=== PATIENT | female | born 1955 | race Caucasian/White ===

== ENCOUNTER 2023-12-06 17:06 | Inpatient (IN) | payer MEDICARE ==
[~2023-12-06] VITALS: Ht 172.7 cm; Wt 71.2 kg
[2023-12-06 17:33] LABS: BASOPHILS % (AUTO) 0.3 % (0.0-2.0); HEMATOCRIT 29.2 % (31.2-41.9); HEMOGLOBIN 9.5 g/dL (10.9-14.3); LYMPHOCYTES # (AUTO) 1.1 K/uL (0.8-4.8); LYMPHOCYTES % (AUTO) 9.6 % (20.5-51.5); MEAN CORPUSCULAR HEMOGLOBIN 30.4 uug (24.7-32.8); MEAN CORPUSCULAR HGB CONC 33 g/dL (32.3-35.6); MEAN CORPUSCULAR VOLUME 93.2 fL (75.5-95.3); MONOCYTES # (AUTO) 0.4 K/uL (0.1-1.30); MONOCYTES % (AUTO) 3.8 % (0.0-11.0); NEUTROPHILS % (AUTO) 86.3 % (38.5-71.5); PLATELET COUNT (AUTO) 224 K/uL (179-408); RED BLOOD CELL COUNT(AUTO) 3.13 MIL/uL (3.63-4.92); RED CELL DISTRIBUTION WIDTH 12.9 % (12.3-17.7); WHITE BLOOD COUNT (AUTO) 11.6 K/uL (3.8-11.8)
[2023-12-06 17:34] LABS: DIFFERENTIAL COMMENT 1
[2023-12-06 17:40] LABS: CALCIUM 8.6 mg/dL (8.5-10.1); CARBON DIOXIDE 24 mmol/L (21-32); CHLORIDE 106 mmol/L (98-107); CREATININE 0.9 mg/dL (0.6-1.3); GLUCOSE 143 mg/dL (74-106); POTASSIUM 4.3 mmol/L (3.5-5.1); SODIUM SERUM 142 mmol/L (136-145); UREA NITROGEN, BLOOD 45 mg/dL (7-18)
[2023-12-06 17:48] LABS: ALANINE AMINOTRANSFERASE 15 U/L (14-59); ALKALINE PHOSPHATASE 76 U/L (50-136); ASPARTATE AMINOTRANSFERASE 5 U/L (15-37); BILIRUBIN,DIRECT 0.1 mg/dL (0.0-0.2); BILIRUBIN,TOTAL 0.5 mg/dL (0.2-1.0)
[2023-12-06] MEDS ORDERED: LORAZEPAM 0.5 MG TABLET ONE (18:08)
[2023-12-06] MEDS ORDERED: LORA0.5T48 PO (18:14)
[2023-12-06] MEDS: IV NORMAL SALINE 1000 ML BAG IV ONE ×2 (18:33→18:34)
[2023-12-06] MEDS: LORAZEPAM 0.5 MG TABLET PO ONE (18:33)
[2023-12-06] MEDS ORDERED: PANTOPRAZOLE SODIUM 40 MG VIAL ONE (19:24)
[2023-12-06] MEDS: PANTOPRAZOLE SODIUM IV 80 MG in IV DEXTROSE 5% 100 ML IV ONE (19:30)
[2023-12-06 20:01] LABS: *OCCULT BLOOD STOOL POSITIVE (NEGATIVE)
[2023-12-06] MEDS ORDERED: IOHEXOL 300MG/ML 100 ML INFUS..BTL ONE (20:59)
[2023-12-06] MEDS ORDERED: SWABABLE VALVE TRANSFER SET EA MC ONE (20:59)
[2023-12-06] MEDS ORDERED: IV NORMAL SALINE 250 ML IV ONE (21:00)
[2023-12-06] MEDS ORDERED: LORAZEPAM 2 MG/1 ML VIAL IV PRN (21:00)
[2023-12-06] MEDS ORDERED: ACETAMINOPHEN 650 MG SUPP.RECT RC PRN (21:00)
[2023-12-06] MEDS: IV D5/ 0.9% NACL 1,000 ML IV PRN (23:01)
[2023-12-07] VITALS (8 sets, daily range): BP systolic 94–128; BP diastolic 35–52; TEMP 97.8–98.7; O2SAT 96–98
[2023-12-07 07:47] LABS: BASOPHILS % (AUTO) 0.6 % (0.0-2.0); EOSINOPHILS % (AUTO) 0.5 % (0.0-7.0); MEAN CORPUSCULAR VOLUME 92.4 fL (75.5-95.3); MONOCYTES # (AUTO) 0.6 K/uL (0.1-1.30); NEUTROPHILS # (AUTO) 5.1 K/uL (1.8-8.9); WHITE BLOOD COUNT (AUTO) 7.2 K/uL (3.8-11.8)
[2023-12-07 07:50] LABS: LYMPHOCYTES # (AUTO) 1.4 K/uL (0.8-4.8); LYMPHOCYTES % (AUTO) 20.1 % (20.5-51.5); MEAN CORPUSCULAR HEMOGLOBIN 32.1 uug (24.7-32.8); MEAN CORPUSCULAR HGB CONC 35 g/dL (32.3-35.6); MONOCYTES % (AUTO) 8.2 % (0.0-11.0); NEUTROPHILS % (AUTO) 70.6 % (38.5-71.5); PLATELET COUNT (AUTO) 173 K/uL (179-408); RED CELL DISTRIBUTION WIDTH 12.7 % (12.3-17.7)
[2023-12-07 08:00] LABS: ALANINE AMINOTRANSFERASE 10 U/L (14-59); ALBUMIN 2.5 g/dL (3.4-5.0); ALKALINE PHOSPHATASE 59 U/L (50-136); ASPARTATE AMINOTRANSFERASE < 5 U/L (15-37); BILIRUBIN,TOTAL 0.4 mg/dL (0.2-1.0); CARBON DIOXIDE 26 mmol/L (21-32); CHLORIDE 111 mmol/L (98-107); CHOLESTEROL 168 mg/dL (<200); CREATININE 0.7 mg/dL (0.6-1.3); GLUCOSE 108 mg/dL (74-106); HDL CHOLESTEROL 40 mg/dL (40-60); IRON, SERUM 106 ug/dL (50-175); MAGNESIUM 1.8 mg/dL (1.8-2.4); PHOSPHOROUS 2.6 mg/dL (2.5-4.9); POTASSIUM 3.9 mmol/L (3.5-5.1); SODIUM SERUM 144 mmol/L (136-145); TOTAL PROTEIN, SERUM 4.9 g/dL (6.4-8.2); TRIGLYCERIDES 127 MG/DL (30-150); UREA NITROGEN, BLOOD 33 mg/dL (7-18)
[2023-12-07 08:09] LABS: THYROID STIMULATING HORMONE 1.501 mIU/mL (0.358-3.740)
[2023-12-07 08:11] LABS: DIFFERENTIAL COMMENT 1; HEMATOCRIT 20.4 % (31.2-41.9); HEMOGLOBIN 7.1 g/dL (10.9-14.3); RED BLOOD CELL COUNT(AUTO) 2.21 MIL/uL (3.63-4.92)
[2023-12-07] MEDS ORDERED: PANTOPRAZOLE SODIUM 40 MG VIAL IV SCH (09:00)
[2023-12-07] MEDS: PANTOPRAZOLE SODIUM 40 MG VIAL IV SCH (09:02)
[2023-12-07] MEDS ORDERED: EPINEPHRINE 1:10,000 1 MG/10 ML DISP.SYRIN ONE (10:45)
[2023-12-07] MEDS ORDERED: GLUCAGON,HUMAN RECOMBINANT 1 MG VIAL ONE (10:45)
[2023-12-07] MEDS ORDERED: PROPOFOL 200 MG/20 ML BOTTLE ONE (10:45)
[2023-12-07 12:31] LABS: HEMATOCRIT 22.4 % (31.2-41.9)
[2023-12-07 12:37] LABS: HEMOGLOBIN 7.4 g/dL (10.9-14.3)
[2023-12-07] MEDS: ONDANSETRON 4 MG/2 ML VIAL IV PRN (16:31)
[2023-12-07] MEDS ORDERED: PANTOPRAZOLE SODIUM IV 40 MG in IV DEXTROSE 5% 100 ML IV SCH (19:30)
[2023-12-07] MEDS ORDERED: ONDANSETRON 4 MG/2 ML VIAL ONE ×2 (19:33)
[2023-12-07] MEDS: PANTOPRAZOLE SODIUM IV 80 MG in IV DEXTROSE 5% 100 ML IV ONE (21:00)
[2023-12-07] MEDS: PANTOPRAZOLE SODIUM IV 80 MG in IV DEXTROSE 5% 500 ML IV SCH (22:37)
[2023-12-08] VITALS (22 sets, daily range): BP systolic 93–122; BP diastolic 6–57; TEMP 97.4–98.9; O2SAT 92–97
[2023-12-08 06:39] LABS: BASOPHILS % (AUTO) 0.3 % (0.0-2.0); EOSINOPHILS % (AUTO) 0.2 % (0.0-7.0); LYMPHOCYTES # (AUTO) 1.6 K/uL (0.8-4.8); LYMPHOCYTES % (AUTO) 14.4 % (20.5-51.5); MEAN CORPUSCULAR HEMOGLOBIN 31.8 uug (24.7-32.8); MEAN CORPUSCULAR HGB CONC 34 g/dL (32.3-35.6); MEAN CORPUSCULAR VOLUME 92.6 fL (75.5-95.3); MONOCYTES # (AUTO) 0.7 K/uL (0.1-1.30); MONOCYTES % (AUTO) 6.8 % (0.0-11.0); NEUTROPHILS # (AUTO) 8.6 K/uL (1.8-8.9); NEUTROPHILS % (AUTO) 78.3 % (38.5-71.5); PLATELET COUNT (AUTO) 156 K/uL (179-408); WHITE BLOOD COUNT (AUTO) 10.9 K/uL (3.8-11.8)
[2023-12-08 06:45] LABS: CALCIUM 7.7 mg/dL (8.5-10.1); CREATININE 0.9 mg/dL (0.6-1.3); POTASSIUM 3.5 mmol/L (3.5-5.1)
[2023-12-08 06:54] LABS: DIFFERENTIAL COMMENT 1; HEMATOCRIT 18.7 % (31.2-41.9); HEMOGLOBIN 6.4 g/dL (10.9-14.3); RED BLOOD CELL COUNT(AUTO) 2.02 MIL/uL (3.63-4.92)
[2023-12-08] MEDS ORDERED: ALPRAZOLAM 0.5 MG TABLET PO PRN (07:00)
[2023-12-08] MEDS ORDERED: PANTOPRAZOLE SODIUM IV 80 MG in IV DEXTROSE 5% 500 ML IV SCH (08:30)
[2023-12-08] MEDS: PANTOPRAZOLE SODIUM IV 40 MG in IV DEXTROSE 5% 100 ML IV SCH (11:17)
[2023-12-08] MEDS ORDERED: PANTOPRAZOLE SODIUM 40 MG VIAL IV SCH (12:00)
[2023-12-08 15:08] LABS: HEMATOCRIT 25.6 % (31.2-41.9); HEMOGLOBIN 8.6 g/dL (10.9-14.3)
[2023-12-08 19:42] LABS: EOSINOPHILS % (MANUAL) 1 % (0-8); LYMPHOCYTES % (MANUAL) 14 % (20-40); MONOCYTES % (MANUAL) 8 % (2-10); NEUTROPHILS % (MANUAL) 77 % (42-75); PLATELET ESTIMATE ADEQUATE
[2023-12-09 00:23] VITALS: BP 104/40; TEMP 98; O2SAT 94
[2023-12-09 04:00] VITALS: BP 104/40; TEMP 97.8; O2SAT 94
[2023-12-09 07:30] LABS: BASOPHILS % (AUTO) 0.7 % (0.0-2.0); EOSINOPHILS # (AUTO) 0.1 K/uL (0.0-0.7); HEMATOCRIT 24.1 % (31.2-41.9); HEMOGLOBIN 8.1 g/dL (10.9-14.3); LYMPHOCYTES # (AUTO) 1.2 K/uL (0.8-4.8); LYMPHOCYTES % (AUTO) 22.3 % (20.5-51.5); MEAN CORPUSCULAR HGB CONC 33 g/dL (32.3-35.6); MEAN CORPUSCULAR VOLUME 89.8 fL (75.5-95.3); MONOCYTES # (AUTO) 0.4 K/uL (0.1-1.30); MONOCYTES % (AUTO) 8.4 % (0.0-11.0); NEUTROPHILS # (AUTO) 3.4 K/uL (1.8-8.9); NEUTROPHILS % (AUTO) 66.6 % (38.5-71.5); PLATELET COUNT (AUTO) 129 K/uL (179-408); RED BLOOD CELL COUNT(AUTO) 2.68 MIL/uL (3.63-4.92); RED CELL DISTRIBUTION WIDTH 15.4 % (12.3-17.7); WHITE BLOOD COUNT (AUTO) 5.2 K/uL (3.8-11.8)
[2023-12-09 07:38] LABS: DIFFERENTIAL COMMENT 1
[2023-12-09 07:41] LABS: CALCIUM 8.1 mg/dL (8.5-10.1); CREATININE 0.8 mg/dL (0.6-1.3); POTASSIUM 3.3 mmol/L (3.5-5.1)
[2023-12-09 08:00] VITALS: BP 131/53; TEMP 97.6; O2SAT 97
[2023-12-09] MEDS: PANTOPRAZOLE SODIUM 40 MG VIAL IV SCH ×2 (09:24→15:55)
[2023-12-09] MEDS: POTASSIUM CHLORIDE 50 ML IV SCH (10:06)
[2023-12-09 12:00] VITALS: BP 110/65; TEMP 98.2; O2SAT 97
[2023-12-09 14:44] LABS: HEMATOCRIT 25.8 % (31.2-41.9); HEMOGLOBIN 8.6 g/dL (10.9-14.3)
[2023-12-09 16:00] VITALS: BP 138/56; TEMP 97.6; O2SAT 97
[2023-12-09] MEDS ORDERED: PANT40TA2 PO (17:53)
[2023-12-10] MEDS ORDERED: PANTOPRAZOLE SODIUM 40 MG VIAL IV SCH (09:00)
== END 2023-12-09 16:30 | disposition home or self-care (01) | DRG 640 ==
LOC: ER 17:08 → TELE3 22:04
PROVIDERS: ADMIT Internal Medicine; ATTEND Nurse Practitioner Acute Care
PROC: 0W3P8ZZ Control Bleeding in Gastrointestinal Tract, Via Natural or Artificial Opening Endoscopic (ICD-10-PCS; principal; 2023-12-07)
PROC: 30233N1 Transfusion of Nonautologous Red Blood Cells into Peripheral Vein, Percutaneous Approach (ICD-10-PCS; 2023-12-07)
PROC: 0DB68ZX Excision of Stomach, Via Natural or Artificial Opening Endoscopic, Diagnostic (ICD-10-PCS; 2023-12-07)
DX: E86.0 Dehydration (principal); K26.0 Acute duodenal ulcer with hemorrhage; D62 Acute posthemorrhagic anemia; F43.9 Reaction to severe stress, unspecified; K29.70 Gastritis, unspecified, without bleeding; R55 Syncope and collapse; K44.9 Diaphragmatic hernia without obstruction or gangrene; F17.290 Nicotine dependence, other tobacco product, uncomplicated; F32.A Depression, unspecified; N19 Unspecified kidney failure
CPT/HCPCS: 36415; 70030-TC; 71045; 82378; 83550; 83735; 84100; 84443; 84484; 85018; 85025; 86850; 86900; 86901; 86920; 93005; A4663; C9113; G0378; J0171; J1610; J2405; J3480; J3490; J7040; J7042; J7060; J7070; P9016; Q9967